=== PATIENT | female | born 1985 | race Caucasian/White ===

== ENCOUNTER → 2021-08-31 | Outpatient (CLI) | payer BC | LOC: M WUC 09:04 | PROVIDERS: ATTEND Physician Assistant | DX: S92.414A Nondisplaced fracture of proximal phalanx of right great toe, initial encounter for closed fracture (principal) ==

== ENCOUNTER 2024-09-02 03:33 | Emergency (ER) | payer OTHER ==
[~2024-09-02] VITALS: Ht 154.9 cm; Wt 79.5 kg
[2024-09-02 05:28] LABS: KETONE, URINE MANUAL REFLEX 3+ mg/dL (NEGATIVE); PROTEIN, URINE MANUAL REFLEX TRACE mg/dL (NEGATIVE); SP GRAVITY,URINE MANUAL REFLEX 1.030 (1.002-1.035)
[2024-09-02 05:29] LABS: NITRITE, URINE MANUAL RFX NEGATIVE (NEGATIVE); UROBILINOGEN, UA MANUAL REFLEX NORMAL (NORMAL)
[2024-09-02 05:38] LABS: BASO # 0.1 10^3/uL (0.0-0.2); BASO % 0.6 % (0.0-1.0); EOS # 0.1 10^3/uL (0.0-0.5); EOS % 0.4 % (0.0-3.0); LYMPH # 2.7 10^3/uL (1.5-5.0); LYMPH % 19.4 % (24.0-44.0); MONO # 0.8 10^3/uL (0.0-0.8); MONO % 5.9 % (2.0-8.0); NEUTROPHILS # 10.0 10^3/uL (1.5-8.5); NEUTROPHILS % 73.3 % (36.0-66.0); PLATELET COUNT, AUTOMATED 423 10^3/uL (150-450)
[2024-09-02 05:53] LABS: ALT/SGPT 20 U/L (7.0-40); AST/SGOT 27 U/L (<34); CALCIUM LEVEL 9.3 MG/DL (8.5-10.1); CARBON DIOXIDE LEVEL 24 MMOL/L (20-31); CHLORIDE LEVEL 102 MMOL/L (98-107); CREATININE FOR GFR 0.77 MG/DL (0.55-1.30); GLOMERULAR FILTRATION RATE > 90.0 (>58); POTASSIUM SERUM 4.3 MMOL/L (3.5-5.1); SODIUM LEVEL 140 MMOL/L (136-145)
[2024-09-02 06:00] LABS: RBC, URINE MAN REFLEX NONE SEEN /hpf (0-3)
[2024-09-02 06:01] LABS: HYALINE CAST, URINE RFX NONE SEEN /lpf (0-1); SQUAMOUS EPITHELIAL URINE RFX SMALL AMOUNT /hpf (SMALL AMT)
[2024-09-02 06:02] LABS: MICROSCOPIC EXAM RFX PERFORMED; MUCUS, URINE REFLEX SMALL AMOUNT (NEGATIVE)
[2024-09-02 07:00] VITALS: TEMP 98.4
[2024-09-02 07:28] LABS: HCG, SERUM QUALITATIVE NEGATIVE (NEGATIVE)
[2024-09-02] MEDS: NS (Normal Saline) 0.9% 1,000 ML IV ONE ×2 (07:48→09:29)
[2024-09-02] MEDS: ONDANSETRON 4MG 2ML VIAL IV ONE ×2 (07:48→09:29)
[2024-09-02] MEDS: ACETAMINOPHEN *IV* 1,000 MG in IV 1 EA IV ONE (08:17)
[2024-09-02 10:30] VITALS: BP 169/101; O2SAT 98
[2024-09-02] MEDS ORDERED: ONDA-282 PO (10:30)
[2024-09-02] MEDS ORDERED: CARA1TAB6 PO (10:43)
[2024-09-02] MEDS ORDERED: OMEP40CA4 PO (10:43)
== END 2024-09-02 10:47 | disposition home or self-care (01) ==
LOC: M ED 03:33
DX: R11.10 Vomiting, unspecified (principal); R10.9 Unspecified abdominal pain; F10.10 Alcohol abuse, uncomplicated; Z79.899 Other long term (current) drug therapy
CPT/HCPCS: 80048; 80076; 81000; 81015; 83605; 83690; 84703; 85025; 93041; 96361; 96365; 96375; 96376; 99285; J0131; J2405